=== PATIENT | female | born 1965 | race Caucasian/White ===

== ENCOUNTER → 2018-08-16 16:00 | Outpatient (CLI) | payer BC, OTHER, SELFPAY ==
--- NOTE | 2018-08-16 16:36 | BI_ITS ---
MAMMOGRAPHY - BILATERAL SCREENING REASON FOR EXAM: Female, 53 years old. Routine annual screening examination. PERTINENT HISTORY: Personal history of breast cancer. Prior left mastectomy with TRAM flap reconstruction surgery. TECHNIQUE: Digital bilateral breast jatin (3D mammographic acquisition) in the CC and MLO projections. 2-D mediolateral oblique (MLO) and craniocaudad (CC) views of both breasts were obtained. CAD: Full Field Digital Mammography with Computer Added Detection was performed. COMPARISON: Comparison is made with prior examination dated June 27, 2017 and May 06, 2011. FINDINGS: Breast Composition: The breasts are heterogeneously dense in the right breast, which may obscure small masses. Postsurgical changes are seen in the deep portion of the left breast and compared with prior mastectomy and TRAM flap reconstruction surgery. This is unchanged. Stable benign-appearing lymph node in the axillary region of the right breast. There are no dominant masses or suspicious calcifications. No other significant abnormalities are identified. There has been no significant change since the prior study. BI/SCREENING MAMM (CAD), BILAT IMPRESSION: Stable bilateral screening mammogram. Yearly follow-up mammogram recommended. (A) ASSESSMENT CATEGORY: BIRADS Category 2: Benign. A letter regarding these results will be sent to the patient by the facility within 30 days. Approximately 10% of breast cancers are not detected by mammography. A normal mammogram should not delay biopsy of a clinically suspicious abnormality. [id number] Electronically Signed: Tramaine Lauren MD at 8:25 EST Tel [phone], Service support ,
== END ==
PROVIDERS: Family Provider Family Medicine; PCP Family Medicine; Referring Provider Nurse Practitioner Women's Health; Visit Provider Nurse Practitioner Women's Health
DX: Z12.31 Encounter for screening mammogram for malignant neoplasm of breast (principal)
CPT/HCPCS: 77063; 77067

== ENCOUNTER → 2019-10-11 17:04 | Outpatient (CLI) | payer BC, OTHER, SELFPAY ==
[2019-10-11 15:04] VITALS: BMI 26.6
[2019-10-16 19:37] LABS: HPV APTIMA, High Risk Negative (Negative)
== END ==
PROVIDERS: Referring Provider Nurse Practitioner Women's Health; Visit Provider Nurse Practitioner Women's Health
DX: Z12.4 Encounter for screening for malignant neoplasm of cervix (principal)
CPT/HCPCS: 87624; 88175; G0145

== ENCOUNTER → 2019-10-19 14:47 | Outpatient (CLI) | payer BC, OTHER, SELFPAY ==
[2019-10-11 15:04] VITALS: BMI 26.6
--- NOTE | 2019-10-19 14:48 | BI_ITS ---
MAMMOGRAPHY - BILATERAL SCREENING REASON FOR EXAM: Female, 54 years old. Routine annual screening examination. PERTINENT HISTORY: Personal history of breast cancer. Prior left mastectomy with TRAM flap reconstruction. Grandmother with breast cancer. TECHNIQUE: Digital bilateral breast shaylee (3D mammographic acquisition) in the CC and MLO projections. 2-D mediolateral oblique (MLO) and craniocaudad (CC) views of both breasts were obtained. CAD: Full Field Digital Mammography with Computer Added Detection was performed. COMPARISON: Comparison is made with prior study then number 2017 and June 27, 2017. FINDINGS: Breast Composition: The right breast is heterogeneously dense, which may obscure small masses. Postsurgical changes are seen in the deep portion of the left breast in keeping with prior mastectomy and TRAM flap reconstructive surgery. There are no dominant masses or suspicious calcifications. No other significant abnormalities are identified. There has been no significant change since the prior study. BI/SCREEN MAMM (CAD) W/SHAYLEE BILAT IMPRESSION: Stable bilateral screening mammogram. Yearly follow-up mammogram recommended. (A) ASSESSMENT CATEGORY: BIRADS Category 2: Benign. A letter regarding these results will be sent to the patient by the facility within 30 days. Approximately 10% of breast cancers are not detected by mammography. A normal mammogram should not delay biopsy of a clinically suspicious abnormality. [id number] Electronically Signed: Tramaine Lauren, at 15:36 EST , Service support ,
== END ==
PROVIDERS: Referring Provider Nurse Practitioner Women's Health; Visit Provider Nurse Practitioner Women's Health
DX: Z12.31 Encounter for screening mammogram for malignant neoplasm of breast (principal)
CPT/HCPCS: 77063; 77067

== ENCOUNTER → 2020-05-23 15:29 | Outpatient (CLI) | payer BC, OTHER, SELFPAY ==
[2020-05-23 15:19] VITALS: BMI 26.6
--- NOTE | 2020-05-23 15:29 | RAD_ITS ---
STUDY: X-RAY - RIGHT WRIST REASON FOR EXAM: Female, 55 years old. WRIST INJURY WHILE KAYAKING 10 DAYS AGO TECHNIQUE: 4 view(s) of the wrist were obtained. COMPARISON: None. FINDINGS: Normal visualized distal radius and ulna. Normal radiocarpal articulation. Normal distal radioulnar articulation. Normal carpal bones. Normal carpal articulations. Normal carpometacarpal articulation of the thumb. Normal second through fifth carpometacarpal articulations. Normal visualized metacarpal bones. The soft tissue structures are unremarkable. RAD/Wrist min 3 Views IMPRESSION: Normal x-ray examination of the wrist. Electronically Signed: Tramaine Lauren, at 15:45 EDT , Service support ,
--- NOTE | 2020-05-23 15:29 | RAD_ITS ---
STUDY: X-RAY - RIGHT HAND REASON FOR EXAM: Female, 55 years old. WRIST INJURY WHILE KAYAKING 10 DAYS AGO TECHNIQUE: 3 view(s) of the hand. COMPARISON: None. FINDINGS: Normal radiocarpal articulation. Normal distal radioulnar joint. Normal visualized carpal bones. Normal carpal articulations Normal carpometacarpal articulation of the thumb. Normal second through fifth carpometacarpal joints. Normal metacarpi. Normal metacarpophalangeal joint of the thumb. Normal interphalangeal joint of the thumb. Normal proximal and distal phalanges of the thumb. Normal metacarpophalangeal joints of the second through fifth fingers. Normal proximal and distal interphalangeal joints of the second through fifth fingers. Normal phalanges of the second through fifth fingers. The soft tissue structures are unremarkable. RAD/Hand Min 3 Views IMPRESSION: Normal x-ray examination of the hand. Electronically Signed: Tramaine Lauren, at 15:43 EDT , Service support ,
== END ==
PROVIDERS: Referring Provider Physician Assistant Surgical; Visit Provider Physician Assistant Surgical
DX: S66.911A Strain of unspecified muscle, fascia and tendon at wrist and hand level, right hand, initial encounter (principal)
CPT/HCPCS: 73110; 73130

== ENCOUNTER → 2020-11-06 13:43 | Outpatient (CLI) | payer BC, OTHER, SELFPAY ==
--- NOTE | 2020-11-06 13:45 | BI_ITS ---
MAMMOGRAPHY - BILATERAL SCREENING REASON FOR EXAM: Female, 55 years old. Routine annual screening examination. PERTINENT HISTORY: Personal history of breast cancer. Prior left mastectomy with a TRAM flap reconstruction. Grandmother with breast cancer. TECHNIQUE: Digital bilateral breast shaylee (3D mammographic acquisition) in the CC and MLO projections. 2-D mediolateral oblique (MLO) and craniocaudad (CC) views of both breasts were obtained. CAD: Full Field Digital Mammography with Computer Added Detection was performed. COMPARISON: Comparison is made with prior study dated 10/19/2019 and 08/16/2018. FINDINGS: Breast Composition: The right breast heterogeneously dense, which may obscure small masses. Fatty appearance of the left breast in keeping with prior mastectomy and TRAM flap reconstruction. Surgical clips are seen. There are no dominant masses or suspicious calcifications. No other significant abnormalities are identified. There has been no significant change since the prior study. BI/SCRN MAMM (CAD)W/SHAYLEE BILAT IMPRESSION: Stable bilateral screening mammogram. Yearly follow-up mammogram recommended. (A) ASSESSMENT CATEGORY: BIRADS Category 2: Benign. A letter regarding these results will be sent to the patient by the facility within 30 days. Approximately 10% of breast cancers are not detected by mammography. A normal mammogram should not delay biopsy of a clinically suspicious abnormality. [id number] Electronically Signed: Tramaine Lauren MD at 9:48 EST , Service support ,
== END ==
PROVIDERS: PCP Family Medicine; Referring Provider Nurse Practitioner Women's Health; Visit Provider Nurse Practitioner Women's Health
DX: Z12.31 Encounter for screening mammogram for malignant neoplasm of breast (principal); Z80.3 Family history of malignant neoplasm of breast; Z85.3 Personal history of malignant neoplasm of breast; Z90.12 Acquired absence of left breast and nipple
CPT/HCPCS: 77063; 77067

== ENCOUNTER 2021-11-23 13:37 | Outpatient (CLI) | payer BC, OTHER, SELFPAY ==
--- NOTE | 2021-11-23 13:40 | BI_ITS ---
MAMMOGRAPHY - BILATERAL SCREENING REASON FOR EXAM: Female, 56 years old. Routine annual screening examination. PERTINENT HISTORY: Personal history of breast cancer. Prior left mastectomy with TRAM flap reconstruction. Grandmother with breast cancer. TECHNIQUE: Digital bilateral breast shaylee (3D mammographic acquisition) in the CC and MLO projections. 2-D mediolateral oblique (MLO) and craniocaudad (CC) views of both breasts were obtained. CAD: Full Field Digital Mammography with Computer Added Detection was performed. COMPARISON: Comparison is made with prior study dated 11/06/2020 and 10/19/2019. FINDINGS: Breast Composition: The breasts are heterogeneously dense, which may obscure small masses. There are no dominant masses or suspicious calcifications. The left breast is fatty secondary to the TRAM flap reconstruction. Surgical clips are seen in the deep upper aspect of the left breast. No other significant abnormalities are identified. There has been no significant change since the prior study. BI/SCRN MAMM (CAD)W/SHAYLEE BILAT IMPRESSION: Stable bilateral screening mammogram. Yearly follow-up mammogram recommended. (A) ASSESSMENT CATEGORY: BIRADS Category 2: Benign. A letter regarding these results will be sent to the patient by the facility within 30 days. Approximately 10% of breast cancers are not detected by mammography. A normal mammogram should not delay biopsy of a clinically suspicious abnormality. [id number] Electronically Signed: Tramaine Lauren MD at 14:49 EST ,
== END 2021-11-23 23:59 | disposition home or self-care (01) ==
LOC: OPBI 13:37
PROVIDERS: PCP Family Medicine; Visit Provider Nurse Practitioner Women's Health
DX: Z12.31 Encounter for screening mammogram for malignant neoplasm of breast (principal); Z85.3 Personal history of malignant neoplasm of breast; Z80.3 Family history of malignant neoplasm of breast; Z90.12 Acquired absence of left breast and nipple
CPT/HCPCS: 77063; 77067

== ENCOUNTER → 2022-11-24 | Outpatient (CLI) | payer BC, OTHER, SELFPAY ==
--- NOTE | 2022-11-24 13:31 | BI_ITS ---
MAMMOGRAPHY - BILATERAL SCREENING REASON FOR EXAM: Female, 57 years old. Routine annual screening examination. PERTINENT HISTORY: Personal history of breast cancer. Prior left mastectomy with TRAM flap reconstruction. Premature with breast cancer. TECHNIQUE: Digital bilateral breast shaylee (3D mammographic acquisition) in the CC and MLO projections. 2-D mediolateral oblique (MLO) and craniocaudad (CC) views of both breasts were obtained. CAD: Full Field Digital Mammography with Computer Added Detection was performed. COMPARISON: Comparison is made with prior study dated 11/23/2021 and 11/06/2020. FINDINGS: Breast Composition: The right breasts is heterogeneously dense, which may obscure small masses. The left breast is fatty to the reconstruction. Surgical clips are seen in the deep portion of the left breast. There are no dominant masses or suspicious calcifications. No other significant abnormalities are identified. There has been no significant change since the prior study. BI/SCRN MAMM (CAD)W/SHAYLEE BILAT IMPRESSION: Stable bilateral screening mammogram. Yearly follow-up mammogram recommended. (A) ASSESSMENT CATEGORY: BIRADS Category 2: Benign. A letter regarding these results will be sent to the patient by the facility within 30 days. Approximately 10% of breast cancers are not detected by mammography. A normal mammogram should not delay biopsy of a clinically suspicious abnormality. [id number] Electronically Signed: Tramaine Lauren MD at 14:11 EST ,
== END | disposition home or self-care (01) ==
PROVIDERS: PCP Family Medicine; Visit Provider Nurse Practitioner Women's Health
DX: Z12.31 Encounter for screening mammogram for malignant neoplasm of breast (principal)
CPT/HCPCS: 77063; 77067

== ENCOUNTER → 2024-01-16 | Outpatient (CLI) | payer BC, OTHER, SELFPAY ==
--- NOTE | 2024-01-16 15:09 | BI_ITS ---
MAMMOGRAPHY - BILATERAL SCREENING REASON FOR EXAM: Female, 58 years old. Routine annual screening examination. PERTINENT HISTORY: Personal history of breast cancer. Prior left mastectomy with a left TRAM flap reconstructive surgery. TECHNIQUE: Digital bilateral breast shaylee (3D mammographic acquisition) in the CC and MLO projections. 2-D mediolateral oblique (MLO) and craniocaudad (CC) views of both breasts were obtained. CAD: Full Field Digital Mammography with Computer Added Detection was performed. COMPARISON: Comparison is made with prior study dated November 24, 2022 and November 23, 2021. FINDINGS: Breast Composition: Once again, the right breast is heterogeneously dense. This is unchanged. The left breast is fatty due to the TRAM flap reconstructive surgery. Surgical clips are seen in the deep upper central portion of the left breast. There are no dominant masses or suspicious calcifications. No other significant abnormalities are identified. There has been no significant change since the prior study. BI/SCRN MAMM (CAD)W/SHAYLEE BILAT IMPRESSION: Stable bilateral screening mammogram. Yearly follow-up mammogram recommended. (A) ASSESSMENT CATEGORY: BIRADS Category 2: Benign. A letter regarding these results will be sent to the patient by the facility within 30 days. Approximately 10% of breast cancers are not detected by mammography. A normal mammogram should not delay biopsy of a clinically suspicious abnormality. [id number] Electronically Signed: Tramaine Lauren MD at 8:40 EDT ,
== END | disposition home or self-care (01) ==
LOC: OPBI 15:09
PROVIDERS: PCP Family Medicine; Referring Provider Nurse Practitioner Women's Health; Visit Provider Nurse Practitioner Women's Health
DX: Z12.31 Encounter for screening mammogram for malignant neoplasm of breast (principal); Z85.3 Personal history of malignant neoplasm of breast; Z90.12 Acquired absence of left breast and nipple
CPT/HCPCS: 77063; 77067

== ENCOUNTER → 2025-01-16 | Outpatient (CLI) | payer BC, OTHER, SELFPAY ==
--- NOTE | 2025-01-16 13:18 | BI_ITS ---
EXAM: SCRN MAMM (CAD)W/SHAYLEE BILAT DATE: 01/16/2025 CLINICAL HISTORY: F, Age 59 y/o , SCREENING MAMMOGRAM FOR BREAST CANCER Personal history of breast cancer. Grandmother with breast cancer. BREAST CANCER RISK ASSESSMENT: Not assessed. TECHNIQUE: Bilateral screening digital breast tomosynthesis with 2D and 3D images. Computer aided detection. COMPARISON: Prior exam(s) dated January 16, 2024.. FINDINGS: TISSUE DENSITY: Heterogeneous breast density on the right. The patient is status post tram flap reconstruction of the left breast. Surgical clips are seen in the deep upper central aspect of the left breast. Postoperative suture calcification seen in the left breast. Bilateral Breast Mammographic Findings: No significant masses, calcifications or other abnormalities are identified. No suspicious masses, areas of developing architectural distortion, or suspicious calcifications. There has been no significant interval change. BI/SCRN MAMM (CAD)W/SHAYLEE BILAT IMPRESSION: OVERALL FINAL ASSESSMENT: BIRADS 2 BENIGN FINDING RECOMMENDATION: Routine annual follow-up in 1 Year A letter with findings and recommendations will be mailed to the patient. Reading Location: [place] [id number]
[2025-01-21 17:08] LABS: HPV APTIMA, High Risk Negative (Negative)
== END | disposition home or self-care (01) ==
LOC: OPBI 13:17
PROVIDERS: PCP Family Medicine; Referring Provider Nurse Practitioner Women's Health; Visit Provider Nurse Practitioner Women's Health
DX: Z12.31 Encounter for screening mammogram for malignant neoplasm of breast (principal); Z85.3 Personal history of malignant neoplasm of breast; Z80.3 Family history of malignant neoplasm of breast
CPT/HCPCS: 77063; 77067; 87624; 88175; G0145

== ENCOUNTER 2025-05-07 15:07 | Emergency (ER) | payer BC, OTHER, SELFPAY ==
[2025-05-07 15:07] VITALS: BP 119/75; PULSE 70; RESP 18; TEMP 37; O2SAT 100; BMI 24.8
--- NOTE | 2025-05-07 15:40 | ED.VIS.GI ---
HPI HPI - GI History of Present Illness Chief Complaint: Abd Pain Abdominal Pain/Flank Pain Onset: Days (3) Context: Gradual Onset Timing: Waxes and wanes Quality: Cramping Location: RLQ and LLQ Worsened by: - (Sitting down) Relieved by: Nothing Nausea/Vomiting/Emesis GI Symptom: Negative for Nausea or Vomiting Diarrhea/Melena/Hematochezia GI Symptom: Negative for Diarrhea, Melena or Hematochezia Associated Symptoms Associated Symptoms: Negative for Dysuria, Frequency or Hematuria Narrative Narrative: Patient presents with lower abdominal pain that has been getting worse over the past 3 days. Patient states it has been waxing and waning. Patient states it is mainly over the lower abdomen. Patient states it is worse when she sits down but after she is seated it is unchanged. Patient states nothing makes it better. Patient denies any nausea or vomiting. Patient denies any diarrhea, melena, or hematochezia. Patient denies any dysuria, frequency, or hematuria. Patient admits to a low-grade fever. PFSH PFS Medical History (Updated 05/07/25 @ 18:[address] Garfield Graff, DO) Hay fever Breast cancer, left Home Medications ?Medication ?Instructions ?Recorded ?Last Taken ?Type cholecalciferol (vitamin D3) 50 2,000 unit PO ONCE 10/25/17 Unknown History mcg (2,000 unit) capsule calcium 334 mg tab PO 05/23/20 Unknown History (carbonate)-magnesium 134 mg (oxide)-zinc 5 mg tablet cyanocobalamin (vitamin B-12) 1,000 mcg PO DAILY 11/06/20 Unknown History 1,000 mcg capsule ciprofloxacin HCl 500 mg tablet 500 mg PO BID #20 TABLETS 05/07/25 Unknown Rx metronidazole 500 mg tablet 500 mg PO Q6H #40 tabs 05/07/25 Unknown Rx Allergy/AdvReac Type Severity Reaction Status Date / Time erythromycin base Allergy Intermediate Other Verified 05/07/25 15:08 adhesive tape Allergy Mild NEEDS Verified 05/07/25 15:08 FOLLOW-UP chlorhexidine Allergy Mild uknown Verified 05/07/25 15:08 neomycin Allergy Mild PT UNABLE Verified 05/07/25 15:08 TO RESPOND-NEEDS F/U Family History Father Diabetes Myocardial infarction Mother Thyroid disorder Surgical History History of lumpectomy Hx of cholecystectomy Hx of appendectomy Status post left breast lumpectomy S/P cholecystectomy S/P appendectomy Social History household members: spouse number of children: 1 current occupational status: employed current occupation: [employer] history of recent travel: No Smoking Status: Never smoker alcohol intake: never substance use type: does not use what type of physical activity do you participate in: other frequency: 3-4 times per week seatbelt use: always do you feel safe at home: Yes additional social history: - [employer] ROS ED Constitutional Constitutional ED: Reports fever(s); Denies chills Eyes Eyes: Denies blurry vision or change in vision ENT ENT ED: Denies rhinorrhea or sore throat Cardiovascular Cardiovascular: Denies chest pain or palpitations Respiratory/Chest Respiratory/Chest: Denies cough or dyspnea Gastrointestinal Gastrointestinal: Reports abdominal pain; Denies nausea or vomiting Genitourinary Genitourinary ED: Denies dysuria or hematuria Musculoskeletal Musculoskeletal: Reports back pain; Denies neck pain Integumentary Denies abscess or rash Neurologic Neurologic: Reports headache(s); Denies weakness Allergic/Immunologic Allergic/Immunologic ED: Denies mouth swelling or urticaria EXAM Physical Exam Const Vital Signs: 05/07/25 15:07 05/07/25 17:12 Temperature 98.6 F Temperature Source Oral Pulse Rate 70 63 Respiratory Rate 18 18 Blood Pressure 119/75 120/73 Blood Pressure Mean 89 88 Pulse Ox 100 100 Oxygen Delivery Method Room Air Room Air Positive well nourished and well developed Constitutional Narrative: BMI is 24.9. General Appearance ED: well developed and NAD HEENT Reports moist mucous membranes normocephalic and atraumatic Neck supple and no JVD Resp normal respiratory effort and clear to auscultation bilaterally Cardio regular rate and regular rhythm GI non-distended Palpation: soft and tender LLQ, RLQ and suprapubic; Negative for guarding or rebound tenderness present Extremity full ROM General Extremety ED: Negative for edema or tenderness General Extremity: Negative for edema Neuro CN's II-XII intact bilaterally, moves all extremities and no sensory deficits noted Sensorium / Orientation: alert Motor Exam: strength 5/5 throughout Psych mental status grossly normal MDM MDM MDM Narrative Medical decision making narrative: Differential diagnose includes diverticulitis, colitis, bowel obstruction, perforation, urinary tract infection, pyelonephritis, ureteral calculus, and gastroenteritis. CBC will be obtained to assess for leukocytosis and anemia. Comprehensive metabolic profile will be obtained to assess for hepatic function, renal function, and electrolyte abnormality. Urinalysis will be obtained to assess for urinary tract infection and hematuria. CT scan of the abdomen and pelvis will be obtained to assess for colitis, diverticulitis, bowel obstruction, and perforation. Lab Data Attestation: I reviewed the patient's lab results. Lab results narrative: CBC was reviewed. There is a mild leukocytosis of 12.9. The remainder is essentially within normal limits. Comprehensive metabolic profile was reviewed and was essentially within normal limits. Urinalysis was reviewed. Leukocyte esterase was 100. There are 0-5 white blood cells and 0-5 epithelial cells. There is no bacteria noted. Labs: Laboratory Results - last 24 hr 05/07/25 15:23 WBC 12.9 H RBC 4.90 Hgb 14.8 Hct 44.9 MCV 91.6 MCH 30.2 MCHC 33.0 RDW Std Deviation 44.2 H RDW Coeff of Ion 13.1 Plt Count 207 MPV 11.3 Immature Gran % (Auto) 0.300 Neut % (Auto) 75.6 H Lymph % (Auto) 15.0 L [place] % (Auto) 8.5 Eos % (Auto) 0.2 Baso % (Auto) 0.4 Absolute Neuts (auto) 9.8 H Absolute Lymphs (auto) 1.94 Nucleated RBC % 0 Sodium 137 Potassium 4.2 Chloride 101 Carbon Dioxide 23.2 Anion Gap 13 BUN 12 Creatinine 0.80 Estim Creat Clear Calc 69.13 Est GFR (MDRD) Non-Af 84 BUN/Creatinine Ratio 15.4 Glucose 93 Calcium 9.6 Total Bilirubin 1.05 AST 36 H ALT 30 Alkaline Phosphatase 117 H Total Protein 7.2 Albumin 4.5 Globulin 2.7 Albumin/Globulin Ratio 1.7 Urine Color Yellow Urine Clarity Sl. Cloudy Urine pH 6.0 Ur Specific [place] 1.015 Urine Protein 15 H Urine Glucose (UA) Normal Urine Ketones 15 H Urine Occult Blood Negative Urine Nitrite Negative Urine Bilirubin Negative Urine Urobilinogen Normal Ur Leukocyte Esterase 100 H Urine RBC 0-5 SEEN Urine WBC 0-5 SEEN Ur Squamous Epith Cells 0-5 SEEN Urine Bacteria 0 SEEN Urine Mucus 0 SEEN Radiography Diagnostic Testing: Clinical Impression(s) from Imaging Studies Abdomen/Pelvis CT 05/07/25 15:47 IMPRESSION: Acute uncomplicated sigmoid diverticulitis. Reading Location: [facility] CT scan of the abdomen and pelvis was obtained. There is acute uncomplicated sigmoid diverticulitis. There is no bowel obstruction or perforation. There is no evidence of any abscess. This was interpreted by the radiologist was also independently reviewed by myself. Treatment and Re-Evaluation :: Patient was given IV fluids, morphine, and Zofran. Patient was advised of her findings. Patient was given a dose of Cipro and Flagyl here. Patient was given prescriptions for Cipro and Flagyl. Patient was instructed to start with a bland diet and advance as tolerated. Patient was instructed to follow-up with her primary care physician in 5 to 7 days. Patient and spouse understood and were agreeable with the plan. All questions were answered. Discharge Plan Triage Chief Complaint: Abd Pain ED Provider: Garfield Graff Dx/Rx/DC Orders Clinical Impression: Diverticulitis, Abdominal pain Instructions: ED Diverticulitis Prescriptions: New metronidazole 500 mg tablet 500 mg PO Q6H Qty: 40 0RF ciprofloxacin HCl 500 mg tablet 500 mg PO BID Qty: 20 0RF No Action cholecalciferol (vitamin D3) 2,000 unit capsule 2,000 unit PO ONCE calcium carb-mag oxide-zinc ox 334-134-5 mg tablet PO cyanocobalamin (vitamin B-12) 1,000 mcg capsule 1,000 mcg PO DAILY Primary Care Provider: Alphonso Trammell Referrals: Alphonso Trammell MD [Primary Care Provider] - 5-7 Days Print Language: Dominican Disposition Disposition: Home, Self Care
--- NOTE | 2025-05-07 15:47 | CT_ITS ---
PROCEDURE: ABDOMEN/PELVIS W IV CONT ONLY 05/07/2025 REASON FOR EXAM: ABDOMINAL PAIN TECHNIQUE: ABDOMEN/PELVIS W IV CONT ONLY Coronal and Sagittal reconstruction series were provided. CONTRAST: Isovue-300 VOLUME: 100 mL One or more dose reduction techniques were used (e.g., Automated exposure control, adjustment of the mA and/or kV according to patient size, use of iterative reconstruction technique. RADIATION DOSE SUMMARY: CTDlvol: 13.3+ 9.2 mGy DLP: 451.0 mGycm COMPARISON: None. FINDINGS: The peripheral soft tissues are unremarkable. Degenerative changes of the spine. The liver is unremarkable. Surgically absent gallbladder. Partially the pancreas, spleen, and adrenals are unremarkable. The uterus and urinary bladder unremarkable. Colonic diverticulosis. Focal wall thickening and fat stranding adjacent to the sigmoid colon. CT/Abdomen/Pelvis W IV Cont ONLY IMPRESSION: Acute uncomplicated sigmoid diverticulitis. Reading Location: [id number]
[2025-05-07 15:56] LABS: Hematocrit 44.9 % (37-47); Hemoglobin 14.8 g/dL (12.0-15.0); Immature Granulocytes Count 0.040 X10^3/uL (0.0-0.0); Mean Corp Hgb Conc 33.0 g/dL (32-36); Mean Corpuscular Volume 91.6 fL (81-99); Mean Platelet Vol. 11.3 fl (6.2-12.0); NRBC Flagged by Analyzer 0 % (0-5); Platelet Count 207 K/mm3 (150-450); RBC Distribution Width CV 13.1 % (11.6-14.6); RBC Distribution Width SD 44.2 fl (35.1-43.9); Red Blood Count 4.90 M/mm3 (4.2-5.4); White Blood Count 12.9 K/mm3 (4.4-11.0)
[2025-05-07] MEDS: 0.9% Normal Saline (1000mL) 1,000 ML 999 ML IV (16:12)
[2025-05-07 16:21] LABS: Mucous, Urine 0 SEEN /hpf (<or=2+)
[2025-05-07 16:30] LABS: Color, Urine Yellow (Yellow); Glucose, Dipstick Normal (Normal); Ketone-Dipstick 15 mg/dl (Negative); Leukocyte Esterase-Dipstick 100 /ul (Negative); Nitrite-Dipstick Negative (Negative); Occult Blood-Urine Negative /ul (Negative); Protein-Dipstick 15 mg/dl (Negative); Specific Gravity, Urine 1.015 (1.002-1.030); Urine Bilirubin Dipstick Negative (Negative)
[2025-05-07 16:45] LABS: AST(SGOT) 36 U/L (<=31); Alanine Aminotransfer ALT/SGPT 30 U/L (<=34); Albumin, Serum 4.5 g/dL (3.4-4.8); Alkaline Phosphatase 117 U/L (35-104); Anion Gap 13 (5-15); BUN 12 mg/dL (4-19); BUN/Creat Ratio 15.4 RATIO (10-20); Calcium,Total 9.6 mg/dL (7.6-11.0); Carbon Dioxide 23.2 mmol/L (21.0-32.0); Chloride 101 mmol/L (98-108); Estimated Creatinine Clearance 69.13 ml/min (50-250); Globulin 2.7 g/dL (2.2-4.2); Glucose 93 mg/dL (70-99); Potassium 4.2 mmol/L (3.3-5.1)
[2025-05-07 17:05] LABS: Red Blood Cells-Urine 0-5 SEEN /hpf (0-5); Squamous Epithelial Cells - UA 0-5 SEEN /hpf (5-10)
[2025-05-07 17:12] VITALS: BP 120/73; PULSE 63; RESP 18; O2SAT 100
[2025-05-07 18:13] VITALS: BP 120/73; PULSE 63; RESP 18; TEMP 36.6; O2SAT 100
== END 2025-05-07 18:22 | disposition home or self-care (01) ==
PROVIDERS: Emergency Provider Emergency Medicine; PCP Family Medicine; Visit Provider Emergency Medicine
DX: K57.32 Diverticulitis of large intestine without perforation or abscess without bleeding (principal)
CPT/HCPCS: 74177; 80053; 81001; 85025; 96361; 96374; 96375; 99284; Q9967; A4216; J2405